=== PATIENT | female | born 1940 | race Caucasian/White ===

== ENCOUNTER 2018-08-18 12:37 | Outpatient (CLI) | payer MEDICARE, BC ==
--- NOTE | 2018-08-18 14:22 | RAD ---
LUMBAR TWO VIEWS: History: 78-year-old female with history of follow up compression fracture. [id number] FINDINGS: There is some vertical height loss of L1 vertebral body and probably mild vertical height loss of T1 2 vertebral body. There is some generalized disc osteophytosis. IMPRESSION: Vertical height loss of L1 and probably T12 vertebral bodies. No old studies. POS: [facility]
== END 2018-08-18 12:38 | disposition home or self-care (01) ==
LOC: TBSIIMAG 12:37
PROVIDERS: ATTEND Neurological Surgery
DX: M48.56XA Collapsed vertebra, not elsewhere classified, lumbar region, initial encounter for fracture (principal)
CPT/HCPCS: 72100

== ENCOUNTER 2018-10-13 13:06 | Outpatient (CLI) | payer MEDICARE, BC ==
--- NOTE | 2018-10-13 15:30 | RAD ---
2 VIEWS LUMBAR SPINE: Date: 10/13/18 HISTORY: Evaluate lumbar spine fracture. COMPARISON: 08/18/18. FINDINGS: There does appear to be some loss of vertebral body height at T12. No appreciable change. Evaluation is limited due to overpenetration of the distal thoracic spine. There is slight progression in terms of loss of vertebral body height at L1. At the mid portion of th e vertebral body, the vertebral body height measures 1.7 cm (previously measuring approximately 2.0 c m). No significant retropulsion. Stable appearance of the L2-L5 vertebral body. IMPRESSION: Interval slight loss of vertebral body height at L1. POS: [facility]
== END 2018-10-13 13:07 | disposition home or self-care (01) ==
LOC: TBSIIMAG 13:06
PROVIDERS: ATTEND Neurological Surgery
DX: S22.008A Other fracture of unspecified thoracic vertebra, initial encounter for closed fracture (principal)
CPT/HCPCS: 72100